=== PATIENT | male | born 1990 | race Caucasian/White ===

== ENCOUNTER 2018-05-23 10:50 | Emergency (ER) | payer SELFPAY ==
[2018-05-23 10:51] VITALS: BP 130/91; PULSE 92; RESP 18; TEMP 36.6; O2SAT 98; BMI 24.3
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
--- NOTE | 2018-05-23 11:09 | VDLE_ITS ---
Reason For Study: LEG SWELLING RIGHT LEFT GSV is normal. GSV is normal. CFV is compressible, spontaneous, phasic, CFV is compressible, spontaneous, phasic, competent and demonstrates normal competent, and demonstrates normal augmentation. augmentation. FV is compressible, spontaneous, phasic, FV is compressible, spontaneous, phasic, competent and demonstrates normal competent and demonstrates normal augmentation. augmentation. POP V is compressible, spontaneous, phasic, POP V is compressible, spontaneous, phasic, competent and demonstrates normal competent and demonstrates normal augmentation. augmentation. T/P Trunk is compressible. T/P Trunk is compressible. PTV is compressible. PTV is compressible. RT PerV is compressible. LT PerV is compressible. Procedure Exam performed portable in ED. A preliminary report was called and/or faxed to Dr. Sullivan. <> Interpretation Summary Deep veins of the lower extremities are bilaterally patent and compressible segmentally. There is no evidence of deep vein thrombosis on either side. Valvular competence appears intact within the proximal deep venous systems bilaterally. The greater saphenous veins appear bilaterally patent and compressible segmentally. Ordering Physician: Sil Sullivan Referring Physician: Kee Dan M.D. Performed By: Laney Moody RVT
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
[2018-05-23 11:34] LABS: Absolute Lymphocyte Count 1.24 X10^3/ul (0.83-4.51); Absolute Neutrophil Count 5.9 X10^3/uL (2.0-7.7); Basophil# 0.03 X10^3/uL; Basophil% 0.4 % (0-1); Eosinophil# 0.14 X10^3/uL; Eosinophils% 1.7 % (0-5); Hematocrit 29.3 % (40-54); Hemoglobin 9.3 g/dl (13.0-16.5); Lymphocyte # 1.24 X10^3/ul (4.0); Lymphocyte % 14.7 % (19-41); Mean Corp Hgb Conc 31.7 g/gl (32-36); Mean Corpuscular Hgb 30.1 pg (27.0-32.0); Mean Corpuscular Volume 94.8 fL (80-94); Monocyte# 1.08 X10^3/uL; Monocyte% 12.8 % (0-10); Neutrophil # 5.94 X10^3/uL (2.7-7.7); Neutrophil % 70.3 % (47-70); POSITIVE COUNT NO; POSITIVE DIFFERENTIAL NO; POSITIVE MORPHOLOGY NO; Platelet Count 517 K/mm3 (150-450); RBC Distribution Width CV 13.7 % (11.6-14.6); RBC Distribution Width SD 44.3 fl (35.1-43.9); Red Blood Count 3.09 M/mm3 (4.6-6.2); White Blood Count 8.4 K/mm3 (4.4-11.0)
[2018-05-23 11:49] LABS: Anion Gap 11 (5-15); BUN 21 mg/dL (7-18); BUN/Creat Ratio 24.6 RATIO (10-20); Calcium,Total 8.6 mg/dL (8.5-10.1); Chloride 107 mmol/L (98-107); Creatinine, Serum 0.85 mg/dL (0.70-1.30); EST Glomerular Filtration Rate 114 mL/min (>60); Est Glom Filt Rate - Afr Amer 138 mL/min (>60); Estimated Creatinine Clearance 151.77 ml/min; Glucose 135 mg/dL (74-106); Potassium 3.6 mmol/L (3.5-5.1); Sodium Level 142 mmol/L (136-145)
[2018-05-23] MEDS: Ondansetron 4 MG/2 ML Vial IV (11:58)
[2018-05-23] MEDS: morphine 8 MG/ML Syringe IV (11:58)
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
[2018-05-23 13:52] VITALS: BP 135/79; PULSE 78; RESP 19; O2SAT 97
[2018-05-23] MEDS: Ibuprofen 600 MG Tablet PO (13:58)
--- NOTE | 2018-05-23 13:59 | ED.DEP ---
ED Disposition - Plan for ED Patient: Chief Complaint: Wound Check Instructions: ED Wound Check Post Op No Infec Referrals: Kee Dan DO [COURTESY STAFF PHYSICIAN] - Additional Instructions: Follow-up with your physicians at the [facility] as soon as possible
--- NOTE | 2018-05-25 09:43 | CM.ED ---
Social Work Note Received records from [facility]. Placed call to Dr. Daniels's office who is not in today. Placed call to [facility], and Dr. Abdi, is accepting new patients. Pt is scheduled for Monday at 1600. Placed call to pt's grandfather, Zachery Bonilla, and updated with appointment time. No further questions at this time, and made aware that SW is available if needed. Will deliver [facility] records to [facility] per their request. Will not accept via fax d/t size (100+ pages). PAPO Rice, ANCELMO
== END 2018-05-23 14:25 | disposition home or self-care (01) ==
LOC: ED 12:32
PROVIDERS: Emergency Provider Emergency Medicine; PCP Family Medicine
DX: G89.18 Other acute postprocedural pain (principal); Z98.890 Other specified postprocedural states; Z79.891 Long term (current) use of opiate analgesic
CPT/HCPCS: 73590; 80048; 85025; 93970; 96374; 96375; 99284; A4216; J2405

== ENCOUNTER 2018-05-26 03:57 | Emergency (ER) | payer MEDICAID, SELFPAY ==
[2018-05-26 03:58] VITALS: BP 120/81; PULSE 83; RESP 15; TEMP 37.1; O2SAT 97; BMI 25.7
[2018-05-26] MEDS: oxyCODONE 5 MG Tablet PO (04:44)
[2018-05-26 04:55] LABS: Absolute Lymphocyte Count 1.49 X10^3/ul (0.83-4.51); Absolute Neutrophil Count 5.1 X10^3/uL (2.0-7.7); Basophil# 0.03 X10^3/uL; Basophil% 0.4 % (0-1); Eosinophil# 0.38 X10^3/uL; Eosinophils% 4.6 % (0-5); Lymphocyte # 1.49 X10^3/ul (4.0); Mean Corp Hgb Conc 31.3 g/gl (32-36); Mean Corpuscular Hgb 29.8 pg (27.0-32.0); Mean Corpuscular Volume 95.2 fL (80-94); Mean Platelet Vol. 8.9 fl (6.2-12.0); Monocyte# 1.24 X10^3/uL; Neutrophil # 5.14 X10^3/uL (2.7-7.7); Neutrophil % 61.9 % (47-70); Platelet Count 387 K/mm3 (150-450); RBC Distribution Width SD 47.8 fl (35.1-43.9); Red Blood Count 3.36 M/mm3 (4.6-6.2); White Blood Count 8.3 K/mm3 (4.4-11.0)
[2018-05-26 05:02] LABS: POSITIVE COUNT NO; POSITIVE DIFFERENTIAL NO; POSITIVE MORPHOLOGY NO
[2018-05-26 05:06] LABS: Prothrombin Time (Protime)PT. 13.2 SECONDS (11.7-14.9)
[2018-05-26 05:09] LABS: Anion Gap 10 (5-15); BUN 18 mg/dL (7-18); BUN/Creat Ratio 21.1 RATIO (10-20); CPK Total, Creatine Kinase 64 U/L (39-308); Calcium,Total 8.6 mg/dL (8.5-10.1); Chloride 107 mmol/L (98-107); Creatinine, Serum 0.86 mg/dL (0.70-1.30); EST Glomerular Filtration Rate 114 mL/min (>60); Est Glom Filt Rate - Afr Amer 138 mL/min (>60); Estimated Creatinine Clearance 150.01 ml/min; Glucose 97 mg/dL (74-106); Potassium 3.8 mmol/L (3.5-5.1); Sodium Level 143 mmol/L (136-145)
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
--- NOTE | 2018-05-26 05:36 | ED.DEP ---
ED Disposition - Plan for ED Patient: Chief Complaint: Lower Extremity Injury Instructions: ED Post Op Pain Prescriptions: Oxycodone HCl/Acetaminophen [Percocet 5/325] 1 tab PO Q6H PRN PRN 2 Days #8 tab PRN Reason: Pain Referrals: Zachery Prater MD [Primary Care Provider] - Paddy Her MD [STAFF PHYSICIAN] -
[2018-05-26 06:06] VITALS: BP 141/80; PULSE 68; RESP 15; O2SAT 95
== END 2018-05-26 06:29 | disposition home or self-care (01) ==
PROVIDERS: Emergency Provider Emergency Medicine; Family Provider Family Medicine; PCP Family Medicine
DX: G89.18 Other acute postprocedural pain (principal); M79.604 Pain in right leg; Z72.0 Tobacco use
CPT/HCPCS: 80048; 82550; 85025; 85610; 99283; A4216

== ENCOUNTER 2018-05-29 00:11 | Emergency (ER) | payer MEDICAID, SELFPAY ==
[2018-05-29 00:13] VITALS: BP 137/89; PULSE 107; RESP 16; TEMP 36.9; O2SAT 98; BMI 23.7
--- NOTE | 2018-05-29 00:43 | EKG12_ITS ---
Test Reason : WOUND CHECK Blood Pressure : / mmHG Vent. Rate : 101 BPM Atrial Rate : 101 BPM P-R Int : 138 ms QRS Dur : 084 ms QT Int : 316 ms P-R-T Axes : 080 064 036 degrees QTc Int : 409 ms Sinus tachycardia Nonspecific T wave abnormality Abnormal ECG Confirmed by BARBARA HACKETT, SHYAM ([id number]), photo editor ADAM MARKS ([id number]) on 05/30/2018 4:29:51 PM Referred By: KEREN Confirmed By:SHYAM JIMENEZ MD
--- NOTE | 2018-05-29 00:43 | CT_ITS ---
STUDY: CTA CHEST REASON FOR EXAM: Male, 27 years old. Postoperative leg infection, asthma RADIATION DOSAGE (If Supplied By Facility): CTDIvol = ( 7.75 ) mGy, DLP = ( 467.62 ) mGycm TECHNIQUE: The examination was performed with the intravenous administration of 100ML ml of Isovue 370 contrast material. Post-processing of the angiographic images was performed, with multiplanar reformation and 3D reconstruction. Individualized dose optimization techniques were used for this CT. COMPARISON: None. FINDINGS: The contrast bolus is suboptimal for detecting small or distal pulmonary emboli. No large or central pulmonary emboli are seen. Normal thoracic aorta and visualized great vessels. There is no demonstrated aortic dissection. Normal heart and pericardium. Normal mediastinum. Normal hilar regions. Normal visualized trachea and bronchi. The lungs are well expanded. Normal pulmonary parenchyma. Normal pleura. Normal chest wall structures. Normal osseous structures. Normal visualized upper abdomen. CT/CTA Chest W/WO Contrast IMPRESSION: The contrast bolus is suboptimal for detecting small or distal pulmonary emboli. No large or central pulmonary emboli are seen. Electronically Signed: Isaiah Valdivia MD at 2:59 EST Tel , Service support ,
[2018-05-29] MEDS: 0.9% Normal Saline 1,000 ML 1000 ML IV (00:59)
[2018-05-29] MEDS: Ondansetron 4 MG/2 ML Vial IV (00:59)
[2018-05-29] MEDS: Morphine 4 MG/ML Syringe IV (00:59)
--- NOTE | 2018-05-29 01:08 | ED.RN ---
NO OLD EKGS IN MUSE
[2018-05-29 01:16] LABS: Absolute Neutrophil Count 5.8 X10^3/uL (2.0-7.7); Basophil# 0.03 X10^3/uL; Basophil% 0.3 % (0-1); Eosinophil# 0.39 X10^3/uL; Eosinophils% 4.4 % (0-5); Hematocrit 37.5 % (40-54); Hemoglobin 12.1 g/dl (13.0-16.5); Lymphocyte % 15.7 % (19-41); Mean Corp Hgb Conc 32.3 g/gl (32-36); Mean Corpuscular Hgb 29.9 pg (27.0-32.0); Mean Corpuscular Volume 92.6 fL (80-94); Mean Platelet Vol. 9.1 fl (6.2-12.0); Monocyte# 1.23 X10^3/uL; Monocyte% 13.8 % (0-10); Neutrophil # 5.84 X10^3/uL (2.7-7.7); Neutrophil % 65.6 % (47-70); Platelet Count 446 K/mm3 (150-450); RBC Distribution Width CV 13.6 % (11.6-14.6); Red Blood Count 4.05 M/mm3 (4.6-6.2); White Blood Count 8.9 K/mm3 (4.4-11.0)
[2018-05-29 01:20] LABS: POSITIVE COUNT NO; POSITIVE DIFFERENTIAL NO; POSITIVE MORPHOLOGY NO
[2018-05-29 01:28] LABS: CPK Total, Creatine Kinase 38 U/L (39-308)
[2018-05-29 01:36] LABS: ALB/GLOB Ratio 0.8 RATIO (0.9-2.4); AST(SGOT) 15 U/L (15-37); Alanine Aminotransfer ALT/SGPT 41 U/L (16-61); Albumin, Serum 3.6 g/dL (3.2-5.0); Alkaline Phosphatase 156 U/L (45-117); Anion Gap 7 (5-15); BUN 15 mg/dL (7-18); BUN/Creat Ratio 19.2 RATIO (10-20); Calcium,Total 8.9 mg/dL (8.5-10.1); Chloride 105 mmol/L (98-107); Creatinine, Serum 0.78 mg/dL (0.70-1.30); EST Glomerular Filtration Rate 127 mL/min (>60); Est Glom Filt Rate - Afr Amer 153 mL/min (>60); Globulin 4.7 g/dL (2.2-4.2); Glucose 88 mg/dL (74-106); Lipase 113 U/L (73-393); Potassium 4.4 mmol/L (3.5-5.1); Protein, Total 8.3 g/dL (6.4-8.2); Sodium Level 139 mmol/L (136-145)
[2018-05-29 01:40] LABS: Lactic Acid 1.2 mmol/L (0.4-2.0)
[2018-05-29] MEDS: oxyCODONE 5 MG Tablet 10 MG PO (01:43)
[2018-05-29 02:11] VITALS: BP 133/81; PULSE 80; RESP 20; O2SAT 97
[2018-05-29 02:36] LABS: Prothrombin Time (Protime)PT. 12.8 SECONDS (11.7-14.9)
[2018-05-29] MEDS: Enoxaparin 80 MG/0.8 ML Syringe SC (03:37)
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
[2018-05-29 04:00] VITALS: BP 141/76; PULSE 84; RESP 21; O2SAT 97
[2018-05-29 04:07] VITALS: BP 133/81; PULSE 80; RESP 20; TEMP 36.9; O2SAT 97
[2018-05-29] MEDS: HYDROmorphone 1 MG/ML Syringe IV (04:24)
--- OUTSIDE RECORDS SUMMARY | 2018-07-10 17:50 | XMS RPT_ITS ---
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 treatment. Culture Results: Cultures may have been ordered during your ER visit. We will contact you if the culture results require a change in treatment. Referrals: Most referrals to specialists come from the on-call list You should make your regular doctor aware of any referrals before you schedule the appointment so that they are aware and can make suggestions DIAGNOSIS: Recent multitrauma right lower extremity, Pain right lower extremity secondary #1, Fever without obvious infection INSTRUCTIONS: Continue all previous discharge instructions. Nonweightbearing. REFERRAL [facility] PATIENT NAME: LAURA SAGASTUME [address] [facility] [address] Amaya MEDICAL REC #: [id number] [place] [address] EMERGENCY DEPARTMENT REPORT EMERGENCY DEPARTMENT PHYSICIAN Bernabe Gerber MD (Orthopedics), , fax: Please call the above number to schedule a follow-up appointment. MEDICATIONS We have given you these prescriptions that you must fill and start taking: Percocet 5 mg-325 mg Tab, count:20, Dose = 1-2, count:20, 3 days, count:20,every 6 hours, count:20,ICD 10 G 89.1, count:20 COMMENTS: Patient Satisfaction: Within the first few days after your visit, you will receive an email and/or phone call regarding your visit. We value your feedback, and would appreciate it if you would take the time to complete this short survey. If you receive a call, it will be between 6p and 8p. My signature below indicates that I have received and understand the oral instructions regarding my medical problem. I also acknowledge receipt of this written instruction sheet including a list of major tests and procedures ordered during my visit. I will arrange for follow-up care as indicated by these instructions and referrals. This signed original will be kept in my medical record. Your signature below indicates consent for Case Management to contact [facility] in an effort to meet your ongoing healthcare needs. This will allow forcontinuity of care once you leave the Emergency Department. This exchange of informationwill include, but not be limited to, disclosure of your patient information and possible release of records. DEMOGRAPHICS [facility] PATIENT NAME: LAURA SAGASTUME [address] [facility] [address] Amaya MEDICAL REC #: [id number] [place] [address] EMERGENCY DEPARTMENT REPORT EMERGENCY DEPARTMENT PHYSICIAN [employer] Patient: LAURA SAGASTUME Sex: M : 1990 Age: 27 yr Account No: [id number] Registration Date: 23:00 05/16/2018 Address: [address] [place] [address] Address: [place] [address] REGISTRATION ED Number: [id number] Marital Status: S Financial Class: SELF TRIAGE Priority: 3 - Urgent Complaint: Leg Pain Stated Complaint: BREAK THREW RT LEG PAIN S/P SURGERY 2 DAYS AGO Arrival Date: 05/16/2018 23:00 Triage Date: 05/16/2018 23:01 Mode of Arrival: Ambulance Transfer From: * Home WC: N Language: Estonian Transport: Other$$$ccccccccccccccccccccccccccccc$$$ BED D41 In: 05/16/2018 23:08:20 05/16/2018 23:08:20 TLBA Notes: RT LEG PAIN POST SURG. D41 (Removed From) Out: 05/17/2018 03:00:16 05/17/2018 03:00:16 TLBA PROVIDERS [facility] PATIENT NAME: LAURA SAGASTUME [address] [facility] [address] Amaya MEDICAL REC #: [id number] [place] [address] EMERGENCY DEPARTMENT REPORT EMERGENCY DEPARTMENT PHYSICIAN Emergency Medical Service Provider Contact: 05/16/2018 23:01:07 EMS End: Nikolas Thrasher Provider Contact: 05/16/2018 23:07:56 TLBA End: MD Nikolas Mac Provider Contact: 05/16/2018 23:12:13 TCM End: TRIAGE HISTORY ALLERGIES Allergic To: No Known Allergies 05/16/2018 23:08 TLBA CURRENT MEDS Name: None 05/16/2018 23:08 TLBA Name: REVIEWEDF 05/16/18 05/16/2018 23:08 TLBA ILLNESS Illness: *None 05/16/2018 23:08 TLBA PAST SURGERY HIST Surgery: TIB,FIB, ANKLE MULTIPLE ORTHO 05/16/2018 23:08 TLBA PAST SOCIAL HIST Social History: Communicates without difficulty 05/16/2018 23:08 TLBA Social History: Alcohol - None 05/16/2018 23:08 TLBA Social History: Smoker-None 05/16/2018 23:08 TLBA Social History: Recreational Drugs - None 05/16/2018 23:08 TLBA Social History: Denies Domestic Violence 05/16/2018 23:08 TLBA [facility] PATIENT NAME: LAURA SAGASTUME [address] [facility] [address] Amaya MEDICAL REC #: [id number] [place] [address] EMERGENCY DEPARTMENT REPORT EMERGENCY DEPARTMENT PHYSICIAN Social History: Denies thoughts of self harm. 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 multiple surg to same for recent trauma. last surg 2 days. also with increased swelling. denies: fever, chills, cp, sob, new injury to same. distally to rle skin pale, brisk 2-3 sec cap refill, + pedeal pulses and equal bilat noted. denies other pain or injuries. 05/16/2018 23:19 TLBA 05/16/2018 23:40 surgical bandages removed by dr mac. surgical sites without drainage or redness. wound vac noted to be in place. bandage to skin graft noted to have controlled moist blood under opsite bandage. 05/17/2018 02:58 TLBA 05/16/2018 23:55 iv placed, labs cristiana and medicated as ordered. states is feeling better. no needs att. 05/16/2018 23:55 TLBA 05/17/2018 00:30 states pain is returning, emd notified. 05/17/2018 00:31 TLBA 05/17/2018 00:32 repeat bc cristiana per lab request. 1st from iv site, 2nd cristiana from lt fa. tolerated well. 05/17/2018 00:32 TLBA [facility] PATIENT NAME: LAURA SAGASTUME [address] [facility] [address] Amaya MEDICAL REC #: [id number] [place] [id number] EMERGENCY DEPARTMENT REPORT EMERGENCY DEPARTMENT PHYSICIAN 05/17/2018 00:57 pt requesting additional pain coverage, emd notified. 05/17/2018 00:57 TLBA 05/17/2018 01:32 Called [facility] to set up transfer. Awaiting call back from trauma surgeon. 05/17/2018 01:43 MEMB 05/17/2018 01:50 dr mac in to speak with pt and mother regarding poc. 05/17/2018 02:09 TLBA 05/17/2018 02:48 mary wrap applied to rle, foot to upper thigh per pts request. applied with light pressure. after application and prior to d/c pt with distal cap refill 2-3 sec. no increase in discomfort. additional bandage applied to proximal skin graft bandage due to small amt blood seeping from this sit. poc discussed with pt and mother by emd. questions answered to pts satisfaction. 05/17/2018 02:55 TLBA TREATMENT 05/16/2018 23:12 Primary DOC Guide - A. 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 Fall Risk Assessment (Age andlt;65) 05/16/2018 23:13 TLBA History of Falling in last 3 months? No (0) Confusion or Disorientation? No (0) Intoxicated or Sedated? No (0) Impaired Gait? No (0) Mobility Assist Device Used? No (0) Altered Elimination? No (0) Fall Risk Score 1-2 Points = Low Risk. 3-4 Points = Moderate Risk. 5 or more points = High Risk. 0 [facility] PATIENT NAME: LAURA SAGASTUME [address] [facility] [address] Amaya MEDICAL REC #: [id number] [place] [address] EMERGENCY DEPARTMENT REPORT EMERGENCY DEPARTMENT PHYSICIAN Fall Score Greater andgt;= 3? No 05/16/2018 23:13 Primary DOC Guide - D. Psychosocial Assessment 05/16/2018 23:13 TLBA Over the Last 2 weeks, how often have you had little interest or pleasure in doing things (0) Not at All Is Psychosocial Assessment Score 3 or more? If score is 3 or more please consult ED Navigator! No Total Psychosocial Assessment Score 0 Over the last 2 weeks, how often have you been feeling down, depressed or hopeless (0) Not at All 05/16/2018 23:13 Primary DOC Guide - E. Family Violence Assessment 05/16/2018 23:13 TLBA Within the past year, has anyone ever pushed, shoved, slapped, choked, hit, punched or kicked you: No Within the past year, has anyone ever pressured or forced you to have sexual activities when you did not want to: No Do you feel safe and well cared for: Yes Is there a partner from a previous or current relationship that is making you feel unsafe now: No Family Violence Clinical Observation All Negative Except 05/16/2018 23:13 Patient Interaction - Call light placed within reach. 05/16/2018 23:13 TLBA 05/16/2018 23:13 Patient Interaction - Introduce self to Patient. 05/16/2018 23:13 TLBA 05/16/2018 23:13 Patient Interaction - Name Band on Pt 05/16/2018 23:13 TLBA 05/17/2018 01:00 Hourly Rounding - Rounding 05/17/2018 01:48 TLBA Elimination/Toileting Y Pain 8 Position Comfortable Y Safe Environment Y Assessment Note rededicated for pain, repositioned for comfort. aox3, no adverse reactions to meds. mother at bedside. aware poc. consultation with hospital md for possible transfer. pt receptive. Fall Risk Change N 05/17/2018 01:20 Hourly Rounding - Rounding 05/17/2018 [facility] PATIENT NAME: LARUA SAGASTUME [address] [facility] [address] Amaya MEDICAL REC #: [id number] [place] [address] EMERGENCY DEPARTMENT REPORT EMERGENCY DEPARTMENT PHYSICIAN 01:48 TLBA Elimination/Toileting N Pain 5 Position Comfortable Y Safe Environment Y Assessment Note continue to monitor, no needs att. emd consulting with receiving facility md for transfer. Fall Risk Change N 05/17/2018 02:51 Admit/Discharge - *Discharge instructions/tests andamp; procedures/med list reviewed and provided; prescriptions given to patient 05/17/2018 02:52 TLBA Notes: dcd home with mother. w/c provided to car. crutches provided with instructions. demo proper use prior to leaving. rxs given. receptive no questions. MEDICATIONS IV IV Fluid: B 05/16/2018 23:35 05/16/2018 23:55 TLBA Line #: 1 Rate: ml/hr Location: antecubital fossa right Ndl Gauge: 20 # Attempts: 1 IV Fluid: E 05/17/2018 02:59 05/17/2018 02:59 TLBA Line #: 1 Rate: ml/hr Location: antecubital fossa right Ndl Gauge: 20 # Attempts: 1 Notes: cath intact, bandage applied I AND O VITALS VS-ROUTINE Time: 05/16/2018 23:01 B/P: 142/87 - - - Machine Pulse: 100 - Radial Resp: 20 [facility] PATIENT NAME: LAURA SAGASTUME [address] [facility] [address] Amaya MEDICAL REC #: [id number] [place] [address] EMERGENCY DEPARTMENT REPORT EMERGENCY DEPARTMENT PHYSICIAN Sa02: 99 Room Air Temp: 101.00 F - Oral 05/16/2018 23:08 TLBA VS-Pain Time: 05/16/2018 23:01 Pain Level: 10 05/16/2018 23:08 TLBA VS-GCS Time: 05/16/2018 23:01 Visual: 4 Verbal: 5 Motor: 6 GCS Total: 15 05/16/2018 23:08 TLBA VS-HT/WT Time: 05/16/2018 23:01 Ht: 73 in. Weight: 90.7 kg 05/16/2018 23:08 TLBA VS-Visual Time: 05/16/2018 23:01 05/16/2018 23:08 TLBA VS-FHT Time: 05/16/2018 23:01 05/16/2018 23:08 TLBA VS-Notes Time: 05/16/2018 23:01 MAP 110 05/16/2018 23:08 TLBA VS-ROUTINE Time: 05/17/2018 00:32 B/P: 144/65 - - - Machine Pulse: 98 - Radial Resp: 16 Sa02: 98 Room Air 05/17/2018 00:33 TLBA VS-Pain Time: 05/17/2018 00:32 Pain Level: 10 05/17/2018 00:33 TLBA VS-GCS Time: 05/17/2018 00:32 Visual: 4 Verbal: 5 Motor: 6 GCS Total: 15 05/17/2018 00:33 TLBA VS-HT/WT Time: 05/17/2018 00:32 05/17/2018 00:33 TLBA VS-Visual Time: 05/17/2018 00:32 05/17/2018 00:33 TLBA VS-FHT Time: 05/17/2018 00:32 05/17/2018 00:33 TLBA VS-Notes Time: 05/17/2018 00:32 map 90 05/17/2018 00:33 TLBA VS-ROUTINE Time: 05/17/2018 01:30 B/P: 136/62 - Right Upper Arm - Lying - Machine Pulse: 88 - Radial Resp: 18 Sa02: 99 Room Air 05/17/2018 01:50 TLBA VS-Pain Time: 05/17/2018 01:30 05/17/2018 01:50 TLBA VS-GCS Time: 05/17/2018 01:30 Visual: 4 Verbal: 5 Motor: 6 GCS Total: 15 05/17/2018 01:50 TLBA VS-HT/WT Time: 05/17/2018 01:30 05/17/2018 01:50 TLBA VS-Visual Time: 05/17/2018 01:30 05/17/2018 01:50 TLBA VS-FHT Time: 05/17/2018 01:30 05/17/2018 01:50 TLBA VS-Notes Time: 05/17/2018 01:30 05/17/2018 01:50 TLBA VS-ROUTINE Time: 05/17/2018 02:30 B/P: 132/68 - Right Upper Arm - Lying - Machine Pulse: 88 - Radial Resp: 14 Sa02: 98 Room Air 05/17/2018 03:00 TLBA [facility] PATIENT NAME: LAURA SAGASTUME [address] [facility] [address] Amaya MEDICAL REC #: [id number] [place] [address] EMERGENCY DEPARTMENT REPORT EMERGENCY DEPARTMENT PHYSICIAN VS-Pain Time: 05/17/2018 02:30 Pain Level: 7 05/17/2018 03:00 TLBA VS-GCS Time: 05/17/2018 02:30 Visual: 4 Verbal: 5 Motor: 6 GCS Total: 15 05/17/2018 03:00 TLBA VS-HT/WT Time: 05/17/2018 02:30 05/17/2018 03:00 TLBA VS-Visual Time: 05/17/2018 02:30 05/17/2018 03:00 TLBA VS-FHT Time: 05/17/2018 02:30 05/17/2018 03:00 TLBA VS-Notes Time: 05/17/2018 02:30 05/17/2018 03:00 TLBA ORDERS Discharge patient 05/17/2018 02:22 N/A Ordered: 05/17/2018 02:21 By . Other Reviewed: 05/17/2018 02:22 By . 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 Amaya MEDICAL REC #: [id number] [place] [address] EMERGENCY DEPARTMENT REPORT EMERGENCY DEPARTMENT PHYSICIAN Completed Time: 05/17/2018 00:24 By Nikolas Mac Noted Time: 05/16/2018 23:29 TLBA Results Time: 05/17/2018 00:24 Dilaudid (IV)*(2mg/ml) DOSE: 2 mg IV 05/16/2018 23:41 N/A Ordered: 05/16/2018 23:25 By Nikolas Mac Completed Time: 05/16/2018 23:41 By Nikolas Mac Noted Time: 05/16/2018 23:29 TLBA Lactic Acid Blood (POC) 05/17/2018 00:12 N/A Ordered: 05/16/2018 23:25 By Nikolas Mac Completed Time: 05/17/2018 00:12 By Nikolas Mac Noted Time: 05/16/2018 23:29 TLBA Results Time: 05/17/2018 00:12 Zofran (IV)*(2mg/ml) DOSE: 4 mg IV 05/16/2018 23:41 N/A Ordered: 05/16/2018 23:25 By Nikolas Mac Completed Time: 05/16/2018 23:41 By Nikolas Mac Noted Time: 05/16/2018 23:29 TLBA IV hep lock 05/16/2018 23:41 N/A Ordered: 05/16/2018 23:25 By Nikolas Mac Completed Time: 05/16/2018 23:41 By Nikolas Mac Noted Time: 05/16/2018 23:29 TLBA Blood culture x 2 (draw prior to ATB) 05/16/2018 23:29 N/A Ordered: 05/16/2018 23:25 By Nikolas Mac Noted Time: 05/16/2018 23:29 TLBA Question: Tammi Source Blood Answer: Blood Question: Tammi Description Blood Answer: Peripheral (Venous) DISCHARGE Diagnosis: Recent multitrauma right lower extremity, Pain right lower extremity secondary #1, Fever without obvious infection 05/17/2018 02:21 [facility] PATIENT NAME: LAUR[facility] MEDICAL REC #: [id number] [place] [address] EMERGENCY DEPARTMENT REPORT EMERGENCY DEPARTMENT PHYSICIAN Disposition: Time: 05/17/2018 02:21 Discharge Time: 05/17/2018 03:00 Type: Discharge Condition: Stable for admission/discharge/transfer after emergency evaluation/treatment Category: *NOT APPLICABLE Referral: 05/17/2018 02:21 Admit Physician: . Other PRESCRIPTIONS Percocet 5 mg-325 mg Tab 05/17/2018 02:21 SI-2 q6h Pain for 3 days Additional Instructions: ICD 10 G 89.1 Dispense: 20 / Refills: CHARGES SIGNATURE Nikolas BANERJEE [facility] PATIENT NAME: LAURA SAGASTUME [address] MEDICAL REC #: [id number] [place] [address] EMERGENCY DEPARTMENT REPORT EMERGENCY DEPARTMENT PHYSICIAN Observed: 05/17/2018 Status: F Source: [facility] BLOOD CULTURE 12:29 AM [facility] REPOSITORY Order Comment: [place]: M NO GROWTH AFTER 5 DAYS Performed By: #### [id number] #### [facility] [address] [phone] Observed: 05/17/2018 Status: F Source: [facility] BLOOD CULTURE 12:28 AM [facility] REPOSITORY Order Comment: [place]: M NO GROWTH AFTER 5 DAYS Performed By: #### [id number] #### [facility] [address] [place] [address] CBC W/DIFF Collected: 05/16/2018 Status: F Source: [facility] 11:47 PM [facility] REPOSITORY Order Comment: [place]: M TYPE CODE TESTS RESULT OUT OF RANGE REFERENCE UNITS LAB L200.56219 4.5-11.0 K/CU MM High WBC 11.1 LAB L200.36018 4.50-6.00 M/CU MM Low RBC 3.17 LAB L200.72975 13.5-17.5 G/DL Low HGB 9.4 LAB L200.71917 41.0-53.0 % Low HCT 29.1 LAB L200.53460 80.0-99.0 fl MCV Normal 91.8 LAB L200.07718 32.0-36.0 GM/DL MCHC Normal 32.3 LAB L200.31564 11-14.5 RDW Normal 13.1 LAB L200.41975 9.4-12.4 Low MPV 9.2 LAB L200.03213 150-450 K/CU MM High PLT 726 LAB L200.78049 45-75 % NEUTROPHILS Normal % 68.1 LAB L200.24174 Less than 2 % IMMATURE Normal GRAN % 0.5 LAB L200.38033 20-40 % Low LYMPH % 15.6 LAB L200.08477 2-10 % High MONOCYTE % 14.6 LAB L200.23308 0-5 % EOSINOPHIL Normal % 0.7 LAB L200.90732 0-2 % BASOPHIL % Normal 0.5 LAB L200.84306 2.0-8.3 K/CU MM NEUTROPHIL Normal ABS 7.60 LAB L200.96589 Less than 2 K/CU MM IMMATR GRAN Normal ABS 0.10 LAB L200.86290 0.9-4.4 K/CU MM LYMPH ABS Normal 1.70 LAB L200.96511 0.1-1.1 K/CU MM High MONO ABS 1.60 LAB L200.70988 0-0.5 K/CU MM EOS ABS Normal 0.10 LAB L200.36567 0-0.2 K/CU MM BASO ABS Normal 0.10 LAB L200.65265 Less than 1 % NRBC Normal 0.0 Performed By: #### L200.74415 #### [facility] [address] [place] [address] BMP Collected: 05/16/2018 Status: F Source: [facility] 11:47 PM [facility] REPOSITORY Order Comment: [place]: M TYPE CODE TESTS RESULT OUT OF RANGE REFERENCE UNITS LAB L500.65213 136-145 MMOL/L Normal NA 139 LAB L500.85179 3.5-5.1 MMOL/L Normal K 4.1 LAB L500.08529 98-107 MMOL/L Normal CL 104 LAB L500.32674 21-32 MMOL/L Normal CO2 25 LAB L500.31209 5-16 MMOL/L Normal AGAP 9 LAB L500.41658 70-100 MG/DL High GLU 101 Result Comment: 70-100- Normal Fasting; 100-125 Impaired Fasting; greater than 126 on more than one result- Diabetes. ADA guidelines. Results may be falsely elevated after the administration of Sulfapyridine. Results may be falsely depressed after the administration of Sulfasalazine. LAB L500.77786 7-26 MG/DL Normal BUN 20 LAB L500.17615 0.670-1.170 MG/DL Low CREAT 0.552 Result Comment: Patients receiving either N-Acetylcysteine (NAC) or Metamizole prior to venipuncture, may have falsely depressed results. LAB L500.13099 15-24 High BUN/CREA 36 LAB L500.02234 8.5-10.1 MG/DL Normal CALCIUM TOTAL 9.1 Performed By: #### L500.16584, L500.78501 #### [facility] [address] [place] [address] GFR EST Collected: 05/16/2018 Status: F Source: [facility] 11:47 PM [facility] REPOSITORY Order Comment: [place]: M TYPE CODE TESTS RESULT OUT OF RANGE REFERENCE UNITS LAB L500.69243 ML/MIN Normal IF non-AFR Greater than AMER 60 LAB L500.42820 ML/MIN Normal IF Greater than AMER 60 Performed By: #### L500.28174, L500.24983 #### [facility] [address] [place] [address] LACTATE BLOOD Collected: 05/16/2018 Status: F Source: [facility] 11:46 PM [facility] REPOSITORY Order Comment: [place]: TYPE CODE TESTS RESULT OUT OF REFERENCE UNITS RANGE LAB L550.69856 0.40-2.00 MMOL/L High LACTATE BLOOD 2.05 Performed By: #### L550.87011 #### [facility] [address] [place] [address] CBC AND DIFFERENTIAL Collected: 03/20/2018 Status: CANCELLED Source: [place] 3:37 PM [facility] REPOSITORY Order Comment: TEST CBC AND DIFFERENTIAL WAS CANCELLED, 03/20/2018 15:37 ?Cancel Reason: Patient Discharged. TYPE CODE TESTS RESULT OUT OF REFERENCE UNITS RANGE LAB WBCR(LOINC ) WBC Canceled LAB NRBC(LOINC ) NUCLEATED RBC Canceled LAB RBCCT(LOIN C) RBC Canceled LAB HGB(LOINC) HGB Canceled LAB HCT(LOINC) HCT Canceled LAB MCV(LOINC) MCV Canceled LAB MCHC2(LOIN C) MCHC Canceled LAB PLTCT(LOIN C) PLT Canceled LAB RDWCV(LOIN C) RDW-CV Canceled LAB NEUT(LOINC ) % NEUTROPHIL Canceled LAB IG(LOINC) % AUTOMATED Canceled IMMATURE GRAN Result Comment: Percent differential counts (%) should be interpreted in the context of the absolute cell counts (cells/L). LAB LYMPH(LOINC) % LYMPHOCYTE Canceled LAB MONO(LOINC) % MONOCYTE Canceled LAB EOS(LOINC) % EOSINOPHIL Canceled LAB BASO(LOINC) % BASOPHIL Canceled LAB #NEUT(LOINC) NEUTROPHIL Canceled LAB #LYMP(LOINC) LYMPHOCYTE Canceled LAB #MONO(LOINC) MONOCYTE Canceled LAB #EOS(LOINC) EOSINOPHIL Canceled LAB #BASO(LOINC) BASOPHIL Canceled LAB MDIF(LOINC) DIFFERENTIAL Canceled Performed By: #### CBCDF #### [facility] [address] [place] [address] OVA/PARA + Collected: Status: F Source: ILIFF GIARDIA/CRYPTOSPORIDIUM ANTIGEN 03/20/2018 3:36 PM HOSPITALS REPOSITORY TYPE CODE TESTS RESULT OUT OF REFERENCE UNITS RANGE LAB WKUOP(LOINC ) OVA+P WORKUP SEE BELOW Result Comment: Specimens, when examined, are screened for helminth eggs/larvae, protozoa (eg. Giardia, amoebae) and Coccidia (eg. Cryptosporidium). . STOOL NOT IN PRESERVATIVE UNABLE TO PERFORM FULL O AND P WORKUP LAB OVPWM(LOINC) O+P WETMOUNT Canceled LAB OVPTR(LOINC) O+P TRICHROME STAIN Canceled LAB GIAR2(LOINC) NEGATIVE GIARDIA ANTIGEN NEGATIVE LAB CPTAG(LOINC) NEGATIVE CRYPTOSPORIDIUM ANTIGEN NEGATIVE LAB SOURCE(LOINC) Lab Specimen Source Performed By: #### [id number] #### [facility] [address] [place] [address] [place] [address] BASIC METABOLIC PANEL Collected: 03/20/2018 Status: F Source: ILIFF 2:37 PM HOSPITALS REPOSITORY TYPE CODE TESTS RESULT OUT OF REFERENCE UNITS RANGE LAB GLU(LOINC) 74 - 99 mg/dL GLUCOSE High 100 LAB SOD(LOINC) 136 - 145 mmol/L SODIUM 140 LAB K(LOINC) 3.5 - 5.3 mmol/L POTASSIUM 4.3 LAB CHLOR(LOIN 98 - 107 mmol/L C) CHLORIDE 104 LAB BIC(LOINC) 21 - 32 mmol/L BICARBONATE 30 LAB ANGAP(LOIN 10 - 20 mmol/L C) ANION GAP 10 LAB UREA(LOINC 6 - 23 mg/dL ) UREA NITROGEN 20 LAB CREA(LOINC 0.50 - 1.30 mg/dL ) CREATININE 0.79 LAB GFRFN(LOIN >60 mL/min/1.7 C) 3m2 GFR-NON AM. >60 LAB GFRAA(LOIN >60 mL/min/1.7 C) 3m2 GFR- AM. >60 Result Comment: CALCULATIONS OF ESTIMATED GFR ARE PERFORMED USING THE MDRD STUDY EQUATION FOR THE IDMS-TRACEABLE CREATININE METHODS. CLIN CHEM 2007;53:766-72 LAB CA(LOINC) 8.6 - 10.6 mg/dL CALCIUM 9.8 Performed By: #### BMP #### [facility] [address] [place] [address] CBC Collected: 03/20/2018 Status: F Source: [address] REPOSITORY TYPE CODE TESTS RESULT OUT OF REFERENCE UNITS RANGE LAB WBCR(LOINC 4.4 - 11.3 x10E9/L ) WBC 5.2 LAB NRBC(LOINC 0.0-0.0 /100 WBC ) NUCLEATED RBC 0.0 LAB RBCCT(LOIN 4.50 - 5.90 x10E12/L C) Low RBC 4.49 LAB HGB(LOINC) 13.5 - 17.5 g/dL HGB 13.8 LAB HCT(LOINC) 41.0 - 52.0 % Low HCT 40.2 LAB MCV(LOINC) 80 - 100 fL MCV 90 LAB MCHC2(LOIN 32.0 - 36.0 g/dL C) MCHC 34.3 LAB PLTCT(LOIN 150 - 450 x10E9/L C) PLT 287 LAB RDWCV(LOIN 11.5 - 14.5 % C) RDW-CV 12.3 Performed By: #### CBC #### [facility] [address] [place] [address] DIFFERENTIAL Collected: 03/20/2018 Status: F Source: [address] REPOSITORY TYPE CODE TESTS RESULT OUT OF REFERENCE UNITS RANGE LAB NEUT(LOINC 40.0 - 80.0 % ) % NEUTROPHIL 51.9 LAB IG(LOINC) 0.0 - 0.9 % % AUTOMATED 0.0 IMMATURE GRAN Result Comment: Percent differential counts (%) should be interpreted in the context of the absolute cell counts (cells/L). LAB LYMPH(LOINC) 13.0 - 44.0 % % LYMPHOCYTE 29.8 LAB MONO(LOINC) 2.0 - 10.0 % % MONOCYTE 13.2 LAB EOS(LOINC) 0.0 - 6.0 % % EOSINOPHIL 4.3 LAB BASO(LOINC) 0.0 - 2.0 % % BASOPHIL 0.8 LAB #NEUT(LOINC) 1.20 - 7.70 x10E9/L NEUTROPHIL 2.69 LAB #LYMP(LOINC) 1.20 - 4.80 x10E9/L LYMPHOCYTE 1.54 LAB #MONO(LOINC) 0.10 - 1.00 x10E9/L MONOCYTE 0.68 LAB #EOS(LOINC) 0.00 - 0.70 x10E9/L EOSINOPHIL 0.22 LAB #BASO(LOINC) 0.00 - 0.10 x10E9/L BASOPHIL 0.04 Performed By: #### ADIFF #### [facility] [address] [place] [address] PROVIDER NOTE - ED Observed: 03/20/2018 Status: COMPLETED Source: UNIVERSITY V2 2:22 PM HOSPITALS REPOSITORY Provider Note - ED v2: Chart Review: ED NOTES ED NOTES: Patient complains of subcutaneous worms for the past 2-3 days. Mother seen them coming out of his skin with 1 hand into another. he feels he got from his dog from some mites but he has no travel history. No travel history no exposure to unprocessed water colon streams no exposure to cc no other associated signs or symptoms or modifying factors no previous similar symptoms Past medical history is negative Past surgical history negative Social history doesn't smoke or drink Remainder the review systems is negative except as noted in history of present illness Pupils are PERRL pharynx not injected no adenopathy no JVD or bruits neck is supple no meningismus lungs are clear without rhonchi wheezes or rales cardiac exam without gallop or murmur abdomen soft nontender bowel sounds normoactive no rebound or guarding soft tissue and joints otherwise unremarkable skin there is excoriated rash over the trunk and extremities cranial nerves intact without deficit upper and lower extremity motor sensory reflex examination is normal HISTORY OF PRESENTING ILLNESS LAURA was seen by me at 20-Mar-2018 13:28 for a chief complaint of rash(1). Other complaints include: dog has mites 1 week ago, rash did not improved and pt noticed black worms in skin.(1). Triage Information: Most recent Vital Sign Value Date Temp (F): 96.8 03-20-2018 13:18 Temp (C): 36 03-20-2018 13:18 Heart Rate (beats/min): 67 03-20-2018 13:18 Respirations (breaths/min): 18 03-20-2018 13:18 SpO2 (%): 96 09-18-2018 13:18 BP Systolic (mm Hg): 135 03-20-2018 13:18 BP Diastolic (mm Hg): 81 03-20-2018 13:18 PAST MEDICAL HISTORY ATTESTATION: I have reviewed and confirmed nurse's/medic's notes for patient's medications, allergies, medical history, and surgical history ALLERGIES/INTOLERANCES: No documented data. HEALTH HISTORY: No documented data. OUTPATIENT MEDICATIONS: Home Medications Review Status for Reconciliation: Not Done Med Status: Patient Currently Takes Medications Drug Name: mebendazole 100 mg oral tablet, chewable Instructions: 1 tab(s) chewed 2 times a day Drug Name: Keflex 500 mg oral capsule Instructions: 1 cap(s) orally three times a day x 10 day SIGNIFICANT EVENTS: No documented data. MEDICAL DECISION MAKING/ED COURSE MDM/ED COURSE: I had infectious disease to come down and examined the patient in give their consultation which is noted and he feels that this is not the case of subcutaneous worms or related to that a dilophybrum. Stool for parasites is undertaken which was negative. However the specimen was not properly placed in an appropriate solution and some tests could not be performed. I ordered differential on CBC but it got canceled and I don't have an eosinophil count Patient being contacted today for close follow-up he has been told by Dr. Jones to take a picture of the worms as a arose centimeters TM and he would give his opinion that he can follow-up in the infectious disease clinic. Dermatology was called and they sent to the happy to see the patient but by then patient and the mother became angry with the delays and left the department was given a prescription for Vermox 100 mg twice a day for 3 days as a trial for treatment for worms CLINICAL IMPRESSION Diagnosis/Annotation: ED Dx Name:Parasitic infestation of skin Code:B88.9 Dispostion: discharged ATTESTATION CRITICAL CARE TIME Is this a critically ill patient?: no Electronic Signatures: Milton Herman) (Signed 22-Mar-2018 07:58) Authored: Provider Note - ED v2 Last Updated: 22-Mar-2018 07:58 by Milton Herman) References: 1. Data Referenced From Triage - ED 03/20/2018 1:18 PM TRIAGE - ED Observed: 03/20/2018 Status: UNK Source: ILIFF 1:18 PM HOSPITALS REPOSITORY Pain: Pain Rating (0-10): Rest0 Chart Review: CHIEF COMPLAINT LAURA SAGASTUME is a Male patient with a chief complaint of rash. Onset of the Complaint: 13-Mar-2018 Other Complaints: dog has mites 1 week ago, rash did not improved and pt noticed black worms in skin. Triage Date/Time: 20-Mar-2018 13:18 Pain Rating (0-10): Rest: 0 Vital Signs: Temperature: 96.8F ( 36.0C) taken forehead Blood Pressure: 135/81 Mean: Heart Rate: 67 Respiratory Rate: 18 Pulse Oximetry: 96% on room air, no respiratory support. Height: 6 feet 2.00 inches. 187.9 CM Weight: 190.0 pounds. Calculated 86.1 kg. (stated) Calculated BMI (kg/m2): 24.386 Calculated BSA (m2) 2.12 Cough lasting greater than 3 weeks: no Patient immunocompromised related to: N/A Travel outside of [facility]: no Allergies: no Patient has suicidal thoughts: no Patient has homicidal thoughts: no ZAIN: 3V PAIN Pain Scale Used: GARCIA Past Medical History: ? Past Medical History Reviewedyes Electronic Signatures: Radha Lema) (Signed 20-Mar-2018 13:25) Authored: Triage, Past Medical History Last Updated: 20-Mar-2018 13:25 by Radha Lema) E-SIGN EMERGENCY RM Observed: 03/20/2018 Status: F Source: [facility] 11:31 AM [facility] [address] EMERGENCY ROOM REPORT Patient Name: ALEXANDRA Buck Patient Number: [id number] Patient Type: ER MR Number: [id number] : 1990 Admit Date: 03/18/18 Admitting Physician: Sasha Johnson MD Second Physician: Unsigned documents are preliminary and do not represent medical or legal documents. CHIEF COMPLAINT: RASH HISTORY: The patient is a 27 -year-old male with no history of medical problems who presents with a rash that he has had for several days. It is a somewhat excoriated rash to his upper and lower extremities and torso. He said his dog had mites and the vet gave him some medicine to put on his skin which he says he did, but it does not sound like it was Elimite, and he used it somewhat improperly and put whatever he was using on his skin occasionally several days in a row. He did not use an isolated treatment to wash the medicine off in the morning, or wash any of his bedding and clothes. He has scratching and picking at his skin but he thinks there are worms in his skin now, or parasites and his mother, who he says is an RN, says there are parasites that can get under the skin. I told the patient that I don't believe that there are any parasites on his skin but I do think he has untreated scabies and probably could benefit from a course of steroids as well. He has no medical history otherwise. He takes no medications chronically and he has been treating this rash probably inappropriately for the last several days. He denies any fevers, sweats, chills. He denies any constitutional symptoms otherwise. The rash is in a distribution consistent with scabies involving his hands and interdigital folds as well as his arms and axilla and lower extremities. PAST MEDICAL HISTORY: Noncontributory. MEDICATIONS: None. ALLERGIES: None reported. PHYSICAL EXAMINATION: Vital signs are normal. ENT is negative. Neck: No adenopathy. Lungs are clear. Heart is regular rate, no murmur. Abdomen is soft, nontender. Extremities with no edema. Skin is remarkable for a papular excoriated rash over much of the body surface in a scabiform distribution, consistent with scabies. IMPRESSION: SCABIES PLAN: The patient was given Elimite cream. He was instructed to use it appropriately and wash all his recently worn clothes and bedding. To apply the cream again in a week. He was given a tapering dose of prednisone to help with his allergic reaction. Electronically Reviewed and Signed by: Sasha Johnson MD 03/22/18 08:03 TI: URSULA TD: 03/20/18 EMERGENCY ROOM REPORT [place] [id number] EMERGENCY ROOM REPORT Patient Name: ALEXANDRA Buck Patient Number: [id number] Patient Type: ER MR Number: [id number] : 1990 Admit Date: 03/18/18 Admitting Physician: Sasha Johnson MD Second Physician: Unsigned documents are preliminary and do not represent medical or legal documents. Copy for: ELIZABETH Avila EMERGENCY ROOM REPORT E-SIGN EMERGENCY RM Observed: 01/12/2018 Status: F Source: [facility] 4:01 PM [facility] REPOSITORY [address] [address] EMERGENCY ROOM REPORT Patient Name: ALEXANDRA Buck Patient Number: [id number] Patient Type: ER MR Number: [id number] : 1990 Admit Date: 01/09/18 Admitting Physician: JONATHAN GUNN MD Second Physician: Unsigned documents are preliminary and do not represent medical or legal documents. CHIEF COMPLAINT: FEVER, BODY ACHES HISTORY OF PRESENT ILLNESS: The patient is a 27 -year-old male who has been sick for the last couple of days with fever up and down, generalized body aches, right temporal headache. No nausea or vomiting. No trouble with his vision. No rash. No other associated symptoms. He denies any sore throat. No cough. No trouble urinating. No vomiting, no diarrhea. REVIEW OF SYSTEMS: Constitutional: Has a fever, malaise. Eyes: Negative. ENT: Negative. Neuro: Has a headache in the right temporal area. Respiratory: Negative. Cardiovascular: Negative. Gastrointestinal: Negative. Genitourinary: Negative. Allergic / immunologic: Negative. Musculoskeletal: Has generalized body aches. Neuro: Has a right temporal headache, actually more just a pain in the right temporal area. PAST HISTORY: No significant illness. FAMILY HISTORY: Noncontributory. SOCIAL HISTORY: The patient lives with family. No other significant social history. CURRENT MEDICATIONS: None other than over the counter Tylenol or ibuprofen for fever. DRUG ALLERGIES: None known. PHYSICAL EXAMINATION: He is alert, awake, well-appearing. Color is good. Temperature 100.8, pulse 107, respirations 18, blood pressure 152/80, O2 saturation 96% on room air. Head is normocephalic. Face with no edema or swelling. He is tender in the right temporal area. No swelling noted. Eyes: No icterus or injection of the conjunctivae. Ears: No drainage. No erythema. Tympanic membranes are translucent. Neck is supple with no adenopathy. Chest is symmetrical. No sternal rib retraction. No use of accessory muscles. Heart is regular rhythm. No murmur or rub audible. Lungs are clear to auscultation with no rales, rhonchi or wheezes audible. Abdomen is soft. No tenderness. No mass. No organomegaly palpable. Throat shows no edema, no swelling. Skin has no rashes. MEDICAL DECISION MAKING: Symptoms could be viral. He pulled a tick out of his head on , five days ago. Apparently he does not know how long the tick was there, it was big. So it is difficult to know if this is related to the tick bite or not. We got a CBC on him which was normal. Strep screen was negative. Culture is pending. I ordered Lyme antibody screen which is also pending. We did give him Percocet for the headache he is still complaining of. We gave him a shot of Toradol 60mg IM. We are going to put him on Doxycycline since there is a tick bite involved, and also [place] for the headache to take at home as needed. CONTINUED ON NEXT PAGE... [place]ER[place] [address] EMERGENCY ROOM REPORT Patient Name: ALEXANDRA Bcuk Patient Number: [id number] Patient Type: ER MR Number: [id number] : 1990 Admit Date: 01/09/18 Admitting Physician: JONATHAN GUNN MD Second Physician: Unsigned documents are preliminary and do not represent medical or legal documents. EMERGENCY ROOM TREATMENT, CONTINUED PAGE 2 DISCHARGE DIAGNOSES: 1. ACUTE FEBRILE ILLNESS 2. TICK BITE DISCHARGE PLAN: The patient is to take medication as prescribed. Follow up with his family physician in the next 2-3 days. Return if worse. CONDITION ON DISCHARGE: Stable Electronically Reviewed and Signed by: JONATHAN GUNN MD 01/14/18 09:30 TI: URSULA TD: 01/12/18 Copy for: VELIA CASTILLO MD EMERGENCY ROOM REPORT CBC Collected: 01/09/2018 Status: F Source: [place] 5:13 PM [facility] REPOSITORY TYPE CODE TESTS RESULT OUT OF RANGE REFERENCE UNITS LAB WBC(LOINC) 4.8 - 10.8 X103 9.7 Normal WBC LAB RBC(LOINC) 4.70 - 6.10 X106 Low 4.39 RBC LAB HGB(LOINC) 14.0 - 18.0 g/dl 14.0 Normal HGB LAB HCT(LOINC) 42.0 - 52.0 % Low 39.8 HCT LAB MCV(LOINC) 80.0 - 94.0 fl 90.6 Normal MCV LAB MCH(LOINC) 27.0 - 31.0 pg High 31.9 MCH LAB MCHC(LOINC) 32.0 - 36.0 g/dl 35.2 Normal MCHC LAB RDW(LOINC) 11.5 - 15.5 % 13.5 Normal RDW LAB PLTS(LOINC) 130 - 400 X103 192 Normal PLTS LAB MPV(LOINC) 7.4 - 10.4 fl 7.9 Normal MPV LAB NE#(LOINC) 1.6 - 4.8 X103 High 7.3 NE# LAB LY#(LOINC) 1.3 - 2.9 X103 Low 0.6 LY# LAB MO#(LOINC) 0.3 - 0.8 X103 High 1.7 MO# LAB EO#(LOINC) 0.0 - 0.2 X103 0.0 Normal EO# LAB BA#(LOINC) 0.0 - 0.1 X103 0.0 Normal BA# LAB NE%(LOINC) 42.0 - 66.0 % High 75.8 NE% LAB LY%(LOINC) 20.0 - 46.0 % Low 6.0 LY% LAB MO%(LOINC) 0.0 - 12.0 % High 17.8 MO% LAB EO%(LOINC) 0.0 - 8.0 % 0.0 Normal EO% LAB BA%(LOINC) 0.0 - 2.0 % 0.4 Normal BA% LAB MANUAL DIFF(LOINC) NOT Normal MANUAL INDICATED DIFF LAB RBC MORPH(LOINC) NOT Normal RBC MORPH INDICATED Performed By: #### [id number] #### [facility] [address] [place] [address] Other Comment: COMPLETE BLOOD COUNT RAPID STREP SCREEN Collected: 01/09/2018 Status: F Source: [facility] 5:08 PM [facility] REPOSITORY TYPE CODE TESTS RESULT OUT OF RANGE REFERENCE UNITS LAB RAPID NORMAL:NEGATIVE STREP(LOINC ) Normal RAPID NEGATIVE STREP Performed By: #### [id number] #### [facility] [address] [place], [place] [id number] ALLERGIES ALLERGIES DATE TYPE / CODE NAME / CODE REACTION SEVERITY SOURCE 05/29/2018 Drug No Known Unknown [facility] Allergy/666060746( Allergies/F001 [address] SNOMED CT) 476945(RXNORM) Repository 04/29/2018 Drug NO KNOWN Unknown [facility] Allergy/848407969( ALLERGY/NKA(RX System SNOMED CT) NORM) [place] Repository Miscellaneous No Known Drug [place] Allergy/308587742( Allergies Community SNOMED CT) Hospital Repository ENCOUNTERS ENCOUNTERS ADMIT/DISCHARGE ACCOUNT NUMBER ADMITTING ENCOUNTER LOCATION SOURCE CLASS 05/31/2018/ [id number] Emergency [place] 0[facility] ding:ED Repository 05/29/2018 [id number] Ambulatory [address] [place] [address] 3WRoom: System [id number]: Repository [id number] 05/29/2018/ [id number] Emergency [place] [facility] ding:ED Repository 05/26/2018/ [id number] Emergency [place] 018 [facility] ding:ED Repository 05/23/2018/ [id number] Emergency [place] 018 [facility] ding:ED Repository 05/23/2018/ [id number] Ambulatory [address] Repository 05/17/2018 [id number] Emergency [address] [place] [address] ERRoom: System [id number]: Repository [id number] 05/17/2018/ [id number] Emergency BBuilding:[address] Repository 05/16/2018 [id number] Emergency [facility] Repository ng:H.ED 04/29/2018/ [id number] Emergency [address] [facility]:WED2 Repository 03/20/2018/ [id number] Ambulatory UHCBuilding: [place] [address] TESARoom: [facility] [id number]: Repository [id number] 03/18/2018/ [id number] Emergency ABuilding:[address] Repository 03/18/2018/ [id number] Ambulatory BuildinDanish Mathison Sadia Room: 101 [facility] Repository 01/09/2018/ [id number] Emergency Buildin [place] 018 Room: 106 [facility] Repository PAYERS PAYERS ENCOUNTER GUARANTOR PAYER SUBSCRIBER SOURCE 05/31/2018 LAURA L Primary NOT GIVENUNK [facility] [id number] Insurance:SELF PAY [facility] INSURANCEPolicy [place]ository [place] Number: Effective [id number]: (740) Date:[phone] (HP) 05/29/2018 Laura Primary Laura GumberDOB: ASSURED INFORMATION SECURITYa [employer] GumberDOB: Insurance:Self [id number] System Repository PayPolicy Number: Nirali Escobar, Effective Date: [place] [address]Yts: () 05/29/2018 LAURA L Primary NOT GIVENUNK [facility] [id number] Insurance:SELF PAY [facility] INSURANCEPolicy Repository [place], [place] Number: Effective [address]Iow: (740) Date:[phone] () 05/26/2018 LAURA L Primary LAURA L [facility] [id number] Insurance:MEDICAIDPol GUMBERDOB: [facility] icy Number: [id number] Repository [place], [place] [id number] [address]Fkg: (740) Date:[phone] () 05/26/2018 Secondary NOT GIVENUNK [facility] Insurance:SELF PAY Hospital INSURANCEPolicy Repository Number: Effective Date:2018-05-26 05/23/2018 LAURA L Primary NOT GIVENUNK [facility] [id number] Insurance:SELF PAY [facility] INSURANCEPolicy Repository [place] Number: Effective [id number]: ([phone]) Date:2018-05-23 [id number] () 05/17/2018 Laura Primary Laura GumberDOB: [facility] GumberDOB: Insurance:Self [id number] System Repository PayPolicy Number: Nirali Escobar, Effective Date: [place] [address]Des: (HP) 05/17/2018 LAURA L Primary LAURA L [facility] GUMBERDOB: Insurance:SELF PAY GUMBERDOB: [facility] W INSCOPolicy Number: [id number] [place], [place] Effective [facility] [address]Rle: 330) Date:2018-05-17 [place] [address]Ugt: [phone] (HP) [id number] Name: (HP) () 05/16/2018 LAURA L Primary LAURA L [facility] [id number] [place] Insurance:MEDICAID OF GUMBERUNK [place] [facility] Number: Repository [id number]: (760) [id number] [phone] (HP) Date:[id number] [address] [place] [phone]: 04/29/2018 LAURA [id number] Primary Insurance:[facility] LAURA [facility] MAIN MEDICAID [place]icy System [place] Number: Niall [id number]: [phone]) [id number] Repository [phone] (HP) Date: [address], [place] [address]MA: 03/20/2018 LAURA Primary LAURA GUMBERDOB: [facility] [id number] Hospitals icy Number: [facility] Repository [facility] [id number] [place], [place] Date:Plan [address]Oiq: ([phone]) [phone]: ([phone]) Name:[facility] [phone] (HP) [phone] (HP) [place], [place] [address]BR: 03/18/2018 LAURA L Primary LAURA L [facility] GUMBERDOB: Insurance:SELF GUMBERDOB: [facility] W PAYPolicy Number: [id number] Repository MAIN [facility] [place] Effective [address] [facility], [address] Date:2018-03-18 [id number]: [id number] Name: (WP)
== END 2018-05-29 04:46 | disposition short-term general hospital (02) ==
PROVIDERS: Emergency Provider Emergency Medicine; Family Provider Family Medicine; PCP Family Medicine
DX: T81.49XA Infection following a procedure, other surgical site, initial encounter (principal); L08.9 Local infection of the skin and subcutaneous tissue, unspecified; R06.02 Shortness of breath; Z72.0 Tobacco use
CPT/HCPCS: 71275; 80053; 82550; 83605; 83690; 84484; 85025; 85610; 87070; 87077; 87186; 87205; 93005; 96365; 96367; 96372; 96375; 99285; J7030; Q9967; J2405

== ENCOUNTER 2018-05-31 13:09 | Emergency (ER) | payer SELFPAY ==
[2018-05-31 13:10] VITALS: BP 158/101; PULSE 96; RESP 15; TEMP 36.1; O2SAT 98; BMI 23.1
--- NOTE | 2018-05-31 13:25 | RAD_ITS ---
STUDY: X-RAY CHEST REASON FOR EXAM: Male, 27 years old. Chest pain. TECHNIQUE: Single AP portable view of the chest. COMPARISON: None. FINDINGS: The lungs are clear and expanded. There is no demonstrated pleural abnormality. Normal size heart. Normal mediastinum and rod. Normal visualized pulmonary arteries. Normal visualized aortic arch and descending thoracic aorta. Normal visualized thoracic spine. Normal visualized ribs, clavicles, and shoulders. There is no demonstrated abnormality of the visualized soft tissue structures of the upper abdomen. RAD/Chest 1 View (Portable) IMPRESSION: Normal x-ray examination of the chest. Electronically Signed: Lele Irvin MD at 13:59 EST Tel [phone], Service support ,
--- NOTE | 2018-05-31 13:25 | EKG12_ITS ---
Test Reason : DSYRHYTHMIA Blood Pressure : / mmHG Vent. Rate : 089 BPM Atrial Rate : 089 BPM P-R Int : 150 ms QRS Dur : 084 ms QT Int : 328 ms P-R-T Axes : 078 077 033 degrees QTc Int : 399 ms Normal sinus rhythm Normal ECG Confirmed by BARBARA HACKETT, SHYAM ([id number]), art editor WILY PASCUAL ([id number]) on 06/05/2018 3:32:59 PM Referred By: ALEKSANDRA Confirmed By:SHYAM JIMENEZ MD
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
--- NOTE | 2018-05-31 13:56 | ED.RN ---
DR LAKE UPDATED ON FAMILY CONCERNS AND THE CONVERSATION THIS NURSE HAD WITH THE PT. DR LAKE AGREES WITH THE CURRENT PLAN
--- NOTE | 2018-05-31 14:08 | NURSING ---
CRISIS AWARE OF PATIENT.
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
[2018-05-31 15:41] VITALS: RESP 18
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
[2018-05-31 16:37] VITALS: BP 124/67; PULSE 81; RESP 16; O2SAT 97
--- NOTE | 2018-05-31 16:41 | NURSING ---
AVA, CRISIS, HERE
[2018-05-31 18:24] VITALS: BP 152/84; PULSE 88; RESP 17; O2SAT 100
--- OUTSIDE RECORDS SUMMARY | 2018-07-26 18:18 | XMS RPT_ITS ---
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 Second Physician: Unsigned documents are preliminary and do not represent medical or legal documents. Copy for: ELIZABETH Avila EMERGENCY ROOM REPORT E-SIGN EMERGENCY RM Observed: 01/12/2018 Status: F Source: [facility] 4:01 PM [facility] REPOSITORY [address] [address] EMERGENCY ROOM REPORT Patient Name: ALEXANDRA Buck Patient Number: [id number] Patient Type: ER MR Number: [id number] : 1990 Admit Date: 01/09/18 Admitting Physician: [...] is a tick bite involved, and also [place] for the headache to take at home as needed. CONTINUED ON NEXT PAGE... [place] [address] EMERGENCY ROOM REPORT Patient Name: ALEXANDRA Buck Patient Number: [id number] Patient Type: ER MR Number: [id number] : 1990 Admit Date: 01/09/18 Admitting Physician: [...] REPORT CBC Collected: 01/09/2018 Status: F Source: [place] 5:13 PM [facility] REPOSITORY TYPE CODE TESTS RESULT OUT OF [...] Normal RBC MORPH INDICATED Performed By: #### [id number] #### [facility] [address] [place] [address] Other Comment: COMPLETE BLOOD COUNT RAPID STREP SCREEN Collected: 01/09/2018 Status: F Source: [facility] 5:08 PM [facility] REPOSITORY TYPE CODE TESTS RESULT OUT OF RANGE REFERENCE UNITS LAB RAPID NORMAL:NEGATIVE STREP(LOINC ) Normal RAPID NEGATIVE STREP Performed By: #### [id number] #### [facility] [address] [place], [place] [address] ALLERGIES ALLERGIES DATE TYPE / CODE NAME / CODE REACTION SEVERITY SOURCE 05/29/2018 Drug No Known Unknown [facility] Allergy/372854567( Allergies/F[address]) 364293(RXNORM) Repository 04/29/2018 Drug NO KNOWN Unknown [facility] Allergy/530415783( ALLERGY/NKA(RX System SNOMED CT) NORM) [place] Repository Miscellaneous No Known Drug [place] Allergy/176708333( Allergies Community SNOMED CT) Hospital Repository ENCOUNTERS ENCOUNTERS ADMIT/DISCHARGE ACCOUNT NUMBER ADMITTING ENCOUNTER LOCATION SOURCE CLASS 05/31/2018/ [id number] Emergency [place] 0[facility] ding:ED Repository 05/29/2018 [id number] Ambulatory Buildin[address] [place] [address] 3WRoom: System [id number]: Repository [id number] 05/29/2018/ [id number] Emergency [place] [facility] ding:ED Repository 05/26/2018/ [id number] Emergency [place] 018 [facility] ding:ED Repository 05/23/2018/ [id number] Emergency [place] 018 [facility] ding:ED Repository 05/23/2018/ [id number] Ambulatory [address] Repository 05/17/2018 [id number] Emergency [address] [place] [address] ERRoom: System [id number]: Repository [id number] 05/17/2018/ [id number] Emergency BBuilding:[address] Repository 05/16/2018 [id number] Emergency [facility] Repository ng:H.ED 04/29/2018/ [id number] Emergency [address] [facility] ng:WED2 Repository 03/20/2018/ [id number] Ambulatory UHCBuilding: [place] [address] TESARoom: [facility] [id number]: Repository [id number] 03/18/2018/ [id number] Emergency ABuilding:[address] Repository 03/18/2018/ [id number] Ambulatory BuildinDanish Mathison Sadia Room: 101 [facility] Repository 01/09/2018/ [id number] Emergency Buildin [place] 018 Room: 106 [facility] Repository PAYERS PAYERS ENCOUNTER GUARANTOR PAYER SUBSCRIBER SOURCE 05/31/2018 LAURA L Primary NOT GIVENUNK [facility] [id number] Insurance:SELF PAY [facility] INSURANCEPolicy [place]ository [place] Number: Effective [id number]: (740) Date:[phone] (HP) 05/29/2018 Laura Primary Laura GumberDOB: [employer] GumberDOB: Insurance:Self [id number] System Repository PayPolicy Number: Nirali Escobar, Effective Date: [place] [address]Ube: () 05/29/2018 LAURA L Primary NOT GIVENUNK [facility] [id number] Insurance:SELF PAY [facility] INSURANCEPolicy [place]ository [place] Number: Effective [id number]: ([phone]) Date:[phone] () 05/26/2018 LAURA L Primary LAURA L [facility] [id number] Insurance:MEDICAIDPol GUMBERDOB: [facility] icy Number: [id number] Repository [place], [place] [id number]: (740) Date:[phone] () 05/26/2018 Secondary NOT GIVENUNK [facility] Insurance:SELF PAY Hospital INSURANCEPolicy Repository Number: Effective Date:2018-05-26 05/23/2018 LAURA L Primary NOT GIVENUNK [facility] [id number] Insurance:SELF PAY [facility] INSURANCEPolicy [place]ository [place] Number: Effective [id number]: ([phone]) Date:2018-05-23 [phone] () 05/17/2018 Laura Primary Laura [facility] GumberDOB: Insurance:Self [id number] System Repository PayPolicy Number: Nirali Escobar, Effective Date: [place] [address]Gwb: (HP) 05/17/2018 LAURA L Primary LAURA L [facility] GUMBERDOB: Insurance:SELF PAY GUMBERDOB: [facility] W INSCOPolicy Number: [id number] [place], [place] Effective [facility] [address]Xch: [phone]) Date:2018-05-17 [place] [address]Ghh: [phone] (HP) [id number] Name: (HP) () 05/16/2018 LAURA L Primary LAURA L [facility] [id number] [place] Insurance:MEDICAID OF [place] [facility] [place] [facility] Number: Repository [id number]: [phone]) [id number] [phone] (HP) Date:[id number] [address] [place] [id number]: 04/29/2018 LAURA [id number] Primary Insurance:[facility] LAURA [facility] WEST MAIN MEDICAID OHI[place]olicy System [place], [place] Number: Niall [id number]: ([phone]) [id number] Repository [phone] (HP) Date: [address] [address]UL: 03/20/2018 LAURA Primary LAURA GUMBERDOB: [facility]B: [facility] [id number] Hospitals icy Number: [facility] Repository [facility] [id number] [place], [place] Date:Plan [phone]: [phone]: [phone]) Name:[facility] [phone] (HP) [phone] (HP) [place], [place] [address]IA: 03/18/2018 LAURA L Primary LAURA L [facility] GUMBERDOB: Insurance:SELF GUMBERDOB: [facility] W PAYPolicy Number: [id number] Repository MAIN [facility] [place] Effective [facility], [address] Date:2018-03-18 [id number]: [id number] Name: (WP)
== END 2018-05-31 18:25 | disposition home or self-care (01) ==
PROVIDERS: Emergency Provider Emergency Medicine; Family Provider Family Medicine; PCP Family Medicine
DX: R19.7 Diarrhea, unspecified (principal); R11.0 Nausea; F32.9 Major depressive disorder, single episode, unspecified; Z86.718 Personal history of other venous thrombosis and embolism; Z72.0 Tobacco use; Z79.02 Long term (current) use of antithrombotics/antiplatelets; Z79.891 Long term (current) use of opiate analgesic
CPT/HCPCS: 71045; 93005; 99284; A4216

== ENCOUNTER 2018-07-28 10:49 | Emergency (ER) | payer MEDICAID, SELFPAY ==
[2018-07-28 10:51] VITALS: PULSE 115; RESP 16; TEMP 36.7; O2SAT 98; BMI 23.1
--- NOTE | 2018-07-28 11:07 | ED.DCSUM_ITS ---
- ER Visit Summary Date of Service: 07/28/18 Chief Complaint: Right lower leg pain, redness/drainage History of Present Illness: The patient is a 27 M who presents with right lower leg pain as well as redness and drainage. Started today. He noted a drainage coming from his right lower leg. Patient had multiple surgeries including rods and pins with an overlying skin graft. This occurred in April in [place]. He noted the redness. It is tender to touch. He denies any fevers. He took nothing for it at home. Physical Examination: Vital signs reviewed. Heart is tachycardic and regular rhythm. Lungs are clear. Abdomen is soft. Right lower leg reveals diffuse tenderness. There is swelling locally along the previous surgical site. The previous skin graft site is erythematous with drainage. His neurologic exam is at baseline. Test Results: White blood cell count 11.1. Potassium 3.3. Lactate 3.6. Tib- fib x-ray reveals soft tissue swelling Emergency Department Course and Treatment: Patient does appear to have a cellulitis of the right lower extremity. My concern is that he has had multiple surgeries and has had a recent debridement of this area. He states he did not finish the antibiotic course that was given him the last time he was transferred to [place]. I feel this is probably 1 of the reasons why he keeps getting these infections. At this point I will give him Kefzol. I recommended that he be transferred back to [place] due to his many surgeries. He refuses to do this. I will give him oral antibiotics for home. He will sign out AMA. Treatment Plan: [] Disposition: AGAINST MEDICAL ADVICE Impression: Right lower extremity cellulitis, severe sepsis This note was generated with DocuTAP dictation software. It may contain incorrect words, spelling, and punctuation that were not noted in review of the chart prior to signing ED Disposition - Plan for ED Patient: Chief Complaint: Lower Extremity Injury Referrals: James Guadarrama MD [Primary Care Provider] -
[2018-07-28 11:17] VITALS: PULSE 119; RESP 18; O2SAT 98
[2018-07-28] MEDS: Morphine 4 MG/ML Syringe IV (11:17)
[2018-07-28 11:19] LABS: Absolute Lymphocyte Count 1.08 X10^3/ul (0.83-4.51); Absolute Neutrophil Count 8.5 X10^3/uL (2.0-7.7); Basophil# 0.02 X10^3/uL; Basophil% 0.2 % (0-1); Eosinophil# 0.06 X10^3/uL; Eosinophils% 0.5 % (0-5); Hematocrit 38.5 % (40-54); Lymphocyte # 1.08 X10^3/ul (4.0); Lymphocyte % 9.7 % (19-41); Mean Corp Hgb Conc 31.2 g/gl (32-36); Mean Corpuscular Hgb 27.6 pg (27.0-32.0); Mean Corpuscular Volume 88.5 fL (80-94); Mean Platelet Vol. 9.4 fl (6.2-12.0); Monocyte# 1.38 X10^3/uL; Monocyte% 12.4 % (0-10); Neutrophil # 8.52 X10^3/uL (2.7-7.7); Neutrophil % 76.9 % (47-70); Platelet Count 324 K/mm3 (150-450); RBC Distribution Width CV 13.4 % (11.6-14.6); RBC Distribution Width SD 42.7 fl (35.1-43.9); Red Blood Count 4.35 M/mm3 (4.6-6.2); White Blood Count 11.1 K/mm3 (4.4-11.0)
[2018-07-28 11:20] LABS: POSITIVE COUNT NO; POSITIVE DIFFERENTIAL NO; POSITIVE MORPHOLOGY NO
[2018-07-28] MEDS: Ondansetron 4 MG/2 ML Vial IV (11:24)
--- NOTE | 2018-07-28 11:27 | RAD_ITS ---
STUDY: X-RAY - RIGHT TIBIA AND FIBULA REASON FOR EXAM: Male, 27 years old. His tumor or infection, redness and swelling. TECHNIQUE: 2 view(s) of the tibia and fibula were obtained. COMPARISON: None. FINDINGS: There is a side plate and screws securing previous fracture of the lateral tibial plateau and the proximal tibial shaft. Normal visualized fibula. There is mild irregularity of the articular surface of the distal tibia. Surgical pins, plate and screws are seen in the region of the foot. There is soft tissue swelling of the anterior aspect of the right lower leg. RAD/Tibia & Fibula 2 Views IMPRESSION: 1. Postoperative changes. 2. Soft tissue swelling. 3. If osteomyelitis is suspected clinically, three-phase bone scan is recommended. Electronically Signed: Carlos Gilliam MD at 12:23 EST Tel , Service support ,
[2018-07-28 11:30] LABS: Anion Gap 9 (5-15); BUN 18 mg/dL (7-18); BUN/Creat Ratio 17.3 RATIO (10-20); Calcium,Total 8.9 mg/dL (8.5-10.1); Chloride 105 mmol/L (98-107); Creatinine, Serum 1.04 mg/dL (0.70-1.30); EST Glomerular Filtration Rate 91 mL/min (>60); Est Glom Filt Rate - Afr Amer 110 mL/min (>60); Estimated Creatinine Clearance 123.21 ml/min; Glucose 143 mg/dL (74-106); Potassium 3.3 mmol/L (3.5-5.1); Sodium Level 139 mmol/L (136-145)
[2018-07-28 11:49] LABS: Lactic Acid 3.6 mmol/L (0.4-2.0)
--- NOTE | 2018-07-28 11:51 | ED.RN ---
dr. Nair aware of critical Lactic Acid 3.6
[2018-07-28 11:53] VITALS: BP 158/95; PULSE 114; RESP 18; TEMP 36.8
[2018-07-28 12:53] VITALS: PULSE 108; PULSE 109; RESP 18; TEMP 37.2; O2SAT 98
--- NOTE | 2018-07-28 12:56 | ED.DEP ---
ED Disposition - Plan for ED Patient: Disposition: Home or Assisted Living Chief Complaint: Lower Extremity Injury Instructions: ED Infec Skin Cellulitis Prescriptions: Smz/Tmp Ds [Bactrim Ds] 1 tab PO BID #20 tab Referrals: James Guadarrama MD [Primary Care Provider] -
[2018-07-28] MEDS: Cefazolin 1 GM/50 ML BAG IV (13:41)
[2018-07-28 15:14] LABS: Reflex Lactate? Y
== END 2018-07-28 14:22 | disposition home or self-care (01) ==
PROVIDERS: Emergency Provider Emergency Medicine; Family Provider Family Medicine; PCP Family Medicine
DX: A41.9 Sepsis, unspecified organism (principal); L03.115 Cellulitis of right lower limb; R65.20 Severe sepsis without septic shock; Z72.0 Tobacco use
CPT/HCPCS: 73590; 80048; 83605; 85025; 87040; 96361; 96374; 96375; 99284; J7030; J7050; A4216; J2405

== ENCOUNTER 2024-09-07 22:31 | Emergency (ER) | payer SELFPAY ==
[2024-09-07 22:32] VITALS: BP 156/97; PULSE 110; RESP 18; TEMP 37.9; O2SAT 100; BMI 28.0
--- NOTE | 2024-09-07 22:48 | EX.ED.VIS.UR ---
HPI HPI - URI History of Present Illness Chief Complaint: Sore Throat Informant: patient Narrative Narrative: Mild to started 2 days ago yesterday sore throat congestion pain with swallowing. Today mild headache. His boss was sick however not tested. Grandmother gave him Mucinex along with taking Benadryl and Maalox. No chronic past medical history. No cough. No vomiting or diarrhea. ROS ROS ED Constitutional Constitutional ED: Reports fever(s); Denies chills or sweats ENT ENT ED: Reports sore throat and other Details: Congestion Cardiovascular Cardiovascular: Denies chest pain, leg edema, palpitations or racing heartbeat Respiratory/Chest Respiratory/Chest: Denies cough, dyspnea or dyspnea on exertion Gastrointestinal Gastrointestinal: Denies abdominal pain, diarrhea, nausea or vomiting Genitourinary Genitourinary ED: Denies dysuria, hematuria or urinary frequency Musculoskeletal Musculoskeletal: Reports myalgias; Denies back pain, extremity pain or neck pain Integumentary Denies rash or wounds Neurologic Neurologic: Reports headache(s); Denies paresthesias or weakness PFSH PFSH Home Medications ?Medication ?Instructions ?Recorded ?Last Taken ?Type sulfamethoxazole 800 1 tab PO BID #20 tabs 07/28/18 Unknown Rx mg-trimethoprim 160 mg tablet Allergy/AdvReac Type Severity Reaction Status Date / Time No Known Allergies Allergy Verified 09/07/24 22:32 Social History Smoking Status: Former smoker EXAM Physical Exam Const Vital Signs: 09/07/24 22:32 09/08/24 00:09 Temperature 100.2 F H 98.2 F Temperature Source Oral Pulse Rate 110 H 60 Respiratory Rate 18 12 Blood Pressure 156/97 H 120/78 Blood Pressure Mean 116 92 Pulse Ox 100 99 Oxygen Delivery Method Room Air Positive well nourished and well developed General Appearance ED: well developed and NAD HEENT Reports moist mucous membranes HEENT Narrative: 1+ symmetric tonsils bilaterally. No significant erythema however tonsillar exudate bilaterally. Uvula midline no trismus. TMs normal bilaterally. normocephalic and atraumatic Eyes General Eye ED: Yes normal appearance of both eyes Neck full ROM and no meningeal signs Chest Wall Chest: Negative for tenderness Resp normal respiratory effort and normal air movement Effort and Inspection: symmetric chest movement; Negative for respiratory distress Cardio regular rhythm and no murmurs Rate: tachycardic Peripheral Pulses: pulses 2+ throughout GI normal to inspection, nondistended, normoactive bowel sounds and non-tender Palpation: Negative for guarding or rebound tenderness present Extremity normal to inspection General Extremety ED: Negative for edema or tenderness General Extremity: Negative for edema Neuro oriented x3, CN's II-XII intact bilaterally and no sensory deficits noted Sensorium / Orientation: awake and alert Skin no rashes or lesions noted and no wounds MDM MDM MDM Narrative Medical decision making narrative: Interventions / MDM: Differential diagnosis: Strep pharyngitis, fever, myalgias Diagnosis considered but do not suspect: No clinical peritonsillar abscess. My EKG interpretation: N/A Imaging independently reviewed and interpreted by myself: N/A External documents reviewed: N/A Test considered but not ordered:N/A ED course: Elevated temp 100.2 stable tachycardia. Nontoxic. Tonsillar exudate bilaterally with no clinical peritonsillar abscess. Rapid strep ordered with myalgias will also ordered for COVID flu and RSV. Dexamethasone and Motrin ordered for symptom control. 2350: Strep positive. Awaiting viral swabs. Discussed results with patient. Options for treatment, will order IM Bicillin. COVID, influenza, RSV returned negative. Discussed patient continues to control fluids Tylenol Motrin, salt water gargles. Outpatient follow-up. All questions were answered. Re-evaluation: stable Disposition discussed with patient/family/significant other: Patient Case discussed with consulting clinician: N/A This note was generated with [employer] dictation software. It may contain incorrect words, spelling, and punctuation that were not noted in checking the note before signing. Discharge Plan Triage Chief Complaint: Sore Throat ED Provider: Aguila Macedo Dx/Rx/DC Orders Clinical Impression: Strep pharyngitis, Fever, Myalgia Instructions: ED Fever Control (Adult), ED Pharyngitis, Strep (Confirmed) Prescriptions: No Action sulfamethoxazole-trimethoprim 1 TABLET tablet 1 tab PO BID Qty: 20 0RF Primary Care Provider: Care Physician,No Primary Referrals: James Guadarrama MD [Non-Staff] - 1-2 Weeks Activity Restrictions/Additional Instructions: Strep positive. COVID, flu, RSV negative. Status post Bicillin and dexamethasone. Continue Tylenol or Motrin for pain control. Continue oral fluids for hydration. Print Language: [place] Disposition Disposition: Home, Self Care Discharge Date/Time: 09/08/24 00:26
[2024-09-07] MEDS: Ibuprofen 600 MG Tablet PO (23:04)
[2024-09-07] MEDS: dexAMETHasone 4 MG Tablet 12 MG PO (23:04)
[2024-09-08] MEDS: Penicillin G Benzathine 1.2 MU/2 ML Syringe IM (00:04)
[2024-09-08 00:09] VITALS: BP 120/78; PULSE 60; RESP 12; TEMP 36.8; O2SAT 99
== END 2024-09-08 00:26 | disposition home or self-care (01) ==
PROVIDERS: Emergency Provider Emergency Medicine; Visit Provider Emergency Medicine
DX: J02.0 Streptococcal pharyngitis (principal); Z87.891 Personal history of nicotine dependence
CPT/HCPCS: 87631; 87651; 99282